=== PATIENT | female | born 1960 | race Caucasian/White ===

== ENCOUNTER → 2016-06-20 | Outpatient (CLI) | payer OTHER ==
--- NOTE | 2016-06-21 14:04 | CARD ---
APPROVED REPORT EXAM: Two-dimensional and M-mode echocardiogram with Doppler and color Doppler. Other Information Quality : AverageHR: 76bpm Rhythm : NSRTechnically limited study due to body habitus. INDICATION Dyspnea RISK FACTORS Obesity 2D DIMENSIONS RVDd2.6 (2.9-3.5cm)Left Atrium(2D)3.4 (1.6-4.0cm) IVSd0.9 (0.7-1.1cm)Aortic Root(2D)2.3 (2.0-3.7cm) LVDd5.7 (3.9-5.9cm)LVOT Diameter2.1 (1.8-2.4cm) PWd1.0 (0.7-1.1cm)LVDs3.6 (2.5-4.0cm) FS (%) 36.8 %SV106.1 ml LVEF(%)66.0 (>50%) Aortic Valve AoV Peak Cedric.164.6cm/sAoV VTI36.7cm AO Peak GR.10.8mmHgLVOT Peak Cedric.142.2cm/s AO Mean GR.6mmHgAVA (VMAX)3.11cm2 Mitral Valve MV E Olhmaokh616.0cm/sMV E Peak Gr.7mmHg MV DECEL YGCI601uoOR A Vylrirxr187.0cm/s MV E Mean Gr.4mmHgE/A Ratio1.0 MV A Exmlioft360tr Pulmonary Valve PV Peak Hppbtpru622.7cm/s Tricuspid Valve TR P. Ggymxfav374xp/sRAP QOYLCMWN5xlEx TR Peak Gr.13cjKaYBDI85pbWw Pulmonary Vein S1 Lgfqwott27.0cm/sD2 Xfyadqnt90.8cm/s PVa kpcyhxox66yvlz LEFT VENTRICLE The left ventricle is normal size. There is normal left ventricular wall thickness. The left ventricu lar systolic function is normal and the ejection fraction is within normal range. The LV EF is 66% Th ere is normal LV segmental wall motion. Transmitral Doppler flow pattern is Grade I-abnormal relaxati on pattern. There is no ventricular septal defect visualized. RIGHT VENTRICLE The right ventricle is normal size. There is normal right ventricular wall thickness. The right ventr icular systolic function is normal. ATRIA The left atrium is mildly dilated. The right atrium size is normal. The interatrial septum is intact with no evidence for an atrial septal defect or patent foramen ovale as noted on 2-D or Doppler imagi ng. AORTIC VALVE The aortic valve is normal in structure and function. Doppler and Color Flow revealed no significant aortic regurgitation. There is no significant aortic valvular stenosis. MITRAL VALVE The mitral valve is normal in structure There is no mitral valve stenosis. Doppler and Color Flow rev ealed trace mitral regurgitation. TRICUSPID VALVE The tricuspid valve is normal in structure and function. Doppler and Color Flow revealed mild to mode rate tricuspid regurgitation. There is moderate pulmonary hypertension. The PA pressure was estimated at 51 mmHg. PULMONIC VALVE The pulmonary valve is normal in structure Doppler and Color Flow revealed trace pulmonic valvular re gurgitation. There is no pulmonic valvular stenosis. GREAT VESSELS The aortic root is normal in size. The ascending aorta is normal in size. The pulmonary artery is nor mal. The IVC is normal in size and collapses >50% with inspiration. PERICARDIAL EFFUSION There is no pleural effusion. No significant pericardial effusion was seen Critical Notification Critical Value: No <Conclusion> The left ventricular systolic function is normal and the ejection fraction is within normal range. Th e LV EF is 66% Transmitral Doppler flow pattern is Grade I-abnormal relaxation pattern. The left atrium is mildly dilated. The aortic valve is normal in structure and function. Doppler and Color Flow revealed trace mitral regurgitation. Doppler and Color Flow revealed mild to moderate tricuspid regurgitation. There is moderate pulmonary hypertension. The PA pressure was estimated at 51 mmHg. Doppler and Color Flow revealed trace pulmonic valvular regurgitation. No significant pericardial effusion was seen
== END | disposition home or self-care (01) ==
LOC: ECHO 07:33
PROVIDERS: ATTEND Internal Medicine Cardiovascular Disease
DX: R94.31 Abnormal electrocardiogram [ECG] [EKG] (principal); R06.02 Shortness of breath; R06.00 Dyspnea, unspecified; I27.2 Other secondary pulmonary hypertension; I07.1 Rheumatic tricuspid insufficiency; I34.0 Nonrheumatic mitral (valve) insufficiency
CPT/HCPCS: 93306

== ENCOUNTER → 2016-08-14 | Outpatient (CLI) | payer OTHER ==
[~2016-08-14] MED LIST: ACETAMINOPHEN 500 MG TABLET PO ONE; OXYMETAZOLINE 0.05% NASAL SPRAY 30ML BOTTLE. NS ONE
--- NOTE | 2016-08-15 10:53 | SLEEP ---
DATE OF STUDY: 08/14/2016 ATTENDING PHYSICIAN: Dr. Rachele Dugan. DATE OF STUDY: 08/14/2016 The patient is 56 years old who weighs 320 pounds with a BMI of 55. The patient's [place] score was 3. Sleep study was performed at [place] [facility] lab. During the night of study, the patient spent 406 minutes in bed, but slept for only 148 minutes with poor sleep efficiency of 36%. Sleep latency was 18 minutes with an absent REM sleep. Overall, sleep architecture showed increased stage I sleep, normal stage II sleep, normal slow wave and absent REM sleep. During the night of study, the patient had 2 obstructive apneas, no mixed or central apneas. There were 54 hypopneas. The patient's apnea/hypopnea index was 23 per hour, supine index 19 per hour. REM sleep was not observed. EKG monitoring revealed normal sinus rhythm, average heart rate was 79 beats per minute. No sustained arrhythmias were observed. PLMS were seen at index of 2 per hour and none caused EEG arousals. Review of nocturnal oximetry study revealed mean oxygen saturation of 95% with the lowest of 89%. Only 0.3% of time oxygen saturation remained between 80% and 89%. The patient was very anxious during the study. She had poor sleep efficiency. She did not want to try Ambien. The patient was given an option of CPAP after brief trial, but she could not tolerate anything on her face. As a result, CPAP was not initiated. IMPRESSION: 1. Moderate sleep apnea-hypopnea syndrome with an AHI of 23 per hour. 2. 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 Could be related to anxiety. 3. No clinically significant nocturnal hypoxia. 4. No clinically significant PLMS. RECOMMENDATIONS: 1. The patient did meet the criteria for CPAP initiation; however, she declined to be placed on CPAP. The patient can be given an option of CPAP via nasal pillows and if she is willing to proceed with CPAP, a titration study can be rescheduled at a later date. 2. Alternate treatment options would include oral appliance as recommended by the dentist. Possibility of hypoglossal nerve stimulator placement is also an option. 3. Weight loss is strongly advised. 4. Avoid [employer] depressants. 5. Caution regarding driving until symptoms of sleep apnea resolve with the above recommendation. LUCAS MCQUEEN MD DR: JAKOB/waldemar JOB#: [id number] / [id number] RACHELE Moreno MD MTDD
== END | disposition home or self-care (01) ==
LOC: SLPLAB 18:35
PROVIDERS: ATTEND Family Medicine
DX: I27.2 Other secondary pulmonary hypertension (principal); E66.01 Morbid (severe) obesity due to excess calories; G47.33 Obstructive sleep apnea (adult) (pediatric)
CPT/HCPCS: 95810

== ENCOUNTER → 2016-09-03 | Outpatient (CLI) | payer OTHER ==
--- NOTE | 2016-09-03 11:50 | RAD ---
Indication postop care. The and the June 04, 2016. Initially transabdominal scans were obtained. The initial transabdominal scans were supplemented with transvaginal scans. It will be assumed for the purposes of this dictation at the hCG status is negative. The patient reports her last menstrual period 08/23/2016 The uterus measures approximately 10.4 x 5.2 x 6.6 cm. Endometrial thickness is 14 mm. Occasional nabothian cysts were seen. No significant free fluid was seen. Neither ovary was identified. No adnexal mass was not seen. IMPRESSION: Nonvisualization of the ovaries. Endometrial thickness 14 mm
== END | disposition home or self-care (01) ==
LOC: US 10:23
PROVIDERS: ATTEND Obstetrics & Gynecology
DX: Z39.2 Encounter for routine postpartum follow-up (principal); N88.8 Other specified noninflammatory disorders of cervix uteri
CPT/HCPCS: 76830; 76856

== ENCOUNTER → 2016-12-09 | Outpatient (CLI) | payer OTHER ==
--- NOTE | 2016-12-09 11:08 | RAD ---
Indication: Thickened endometrium, follow-up. Transabdominal and transvaginal pelvic sonography was performed. Correlation is made with prior ultrasound from 09/03/2016. The uterus measures 10.3 x 5.3 x 5.5 cm. The endometrium is thickened at 19 mm. Prior thickness was 14 mm in August 2015. No uterine mass is detected. Ovaries were not visualized. There are cervical Nabothian cysts present. Impression: Abnormal endometrial thickening of 19 mm. No other significant abnormality is detected.
== END | disposition home or self-care (01) ==
LOC: US 10:16
PROVIDERS: ATTEND Obstetrics & Gynecology
DX: N88.8 Other specified noninflammatory disorders of cervix uteri (principal); R93.8 Abnormal findings on diagnostic imaging of other specified body structures
CPT/HCPCS: 76830; 76856

== ENCOUNTER → 2018-04-17 | Outpatient (CLI) | payer OTHER ==
--- NOTE | 2018-04-17 14:50 | RAD ---
MR of the left shoulder Indication: Worsening left shoulder pain Technique: Standard multiplanar sequences are obtained. Findings: Artifact: No significant image degradation. Acromioclavicular joint: Mildly degenerative. Rotator cuff: * Supraspinatus-infraspinatus tendon: Tendinosis. Partial-thickness undersurface tear of the infraspinatus tendon, up to 50-70% deep. No full-thickness rotator cuff rupture or retraction * Subscapularis tendon: Tendinosis with partial tear * Muscle bulk: Mild atrophy * Subacromial subdeltoid bursa: Trace effusion. Fluid: Small glenohumeral effusion. Glenohumeral cartilage: No acute defect or advanced DJD. Labrum: No evidence of labral detachment. Biceps tendon: Intact. Mild fluid surrounding the tendon into the upper arm. Bones: No lesion or acute fracture. Soft tissue: No acute findings. Impression: Rotator cuff tendinosis. Partial-thickness undersurface tear of the infraspinatus tendon. No full-thickness rotator cuff tear. Electronically signed by: Mikey Koroma MD (04/17/2018 2:47 PM) [facility]
== END | disposition home or self-care (01) ==
LOC: MRI 13:17
PROVIDERS: ATTEND Nurse Practitioner Family
DX: S46.012A Strain of muscle(s) and tendon(s) of the rotator cuff of left shoulder, initial encounter (principal); M25.412 Effusion, left shoulder; X58.XXXA Exposure to other specified factors, initial encounter; Y93.89 Activity, other specified; Y92.89 Other specified places as the place of occurrence of the external cause; Y99.8 Other external cause status
CPT/HCPCS: 73221

== ENCOUNTER → 2018-10-20 | Outpatient (CLI) | payer OTHER ==
--- NOTE | 2018-10-20 15:35 | RAD ---
Left lower extremity venous ultrasound, 10/20/2018 : History: Left leg pain and swelling Duplex evaluation including grayscale, color flow and spectral Doppler analysis was performed. The femoral and popliteal veins show no filling defects to suggest DVT. The visualized calf veins are unremarkable. IMPRESSION: There is no sonographic evidence of deep vein thrombosis in the left lower extremity: Electronically signed by: Ham Patel MD (10/20/2018 3:33 PM) [facility]
== END | disposition home or self-care (01) ==
LOC: US 14:13
PROVIDERS: ATTEND Family Medicine
DX: L03.116 Cellulitis of left lower limb (principal); R59.1 Generalized enlarged lymph nodes
CPT/HCPCS: 93971

== ENCOUNTER → 2019-01-08 | Outpatient (CLI) | payer OTHER ==
--- NOTE | 2019-01-08 15:09 | CARD ---
MR#: [id number] Date of Study: 01/08/2019 Ordering Physician: RITIKA BORJAS, Referring Physician: RITIKA BORJAS, Tech: Dina Kovacs APPROVED REPORT EXAM: Two-dimensional and M-mode echocardiogram with Doppler and color Doppler. Other Information Quality : AverageHR: 68bpm INDICATION Edema RISK FACTORS Hyperlipidemia Pre Diabetic 2D DIMENSIONS RVDd2.5 (2.9-3.5cm)Left Atrium(2D)3.1 (1.6-4.0cm) IVSd1.2 (0.7-1.1cm)Aortic Root(2D)3.1 (2.0-3.7cm) LVDd5.2 (3.9-5.9cm)LVOT Diameter2.1 (1.8-2.4cm) PWd1.2 (0.7-1.1cm)LVDs3.4 (2.5-4.0cm) FS (%) 34.6 %SV81.4 ml LVEF(%)63.4 (>50%) Aortic Valve AoV Peak Cedric.162.1cm/sAoV VTI35.9cm AO Peak GR.10.5mmHgLVOT Peak Cedric.144.0cm/s LVOT VTI 32.17cmAO Mean GR.6mmHg CARLOS (VMAX)2.19kr8RUO (VTI)3.06cm2 Mitral Valve MV E Zmeisdlz603.3cm/sMV DECEL JIAP489bh MV A Mphatnpx427.2cm/sMV BHZ23cs E/A Ratio1.1MVA (PHT)4.36cm2 TDI E/Lateral E'10.3E/Medial E'12.2 Pulmonary Valve PV Peak Qwfkyphu015.2cm/sPV Peak Grad.5mmHg Tricuspid Valve TR P. Ehfzrkin720lp/sRAP ZKFJEYVU0ucMb TR Peak Gr.74edLwNTGI33deDq Pulmonary Vein S1 Vgucrxrz90.4cm/sD2 Qtestvyj07.1cm/s PVa xfiyrrsx365nzxg LEFT VENTRICLE The left ventricle is normal size. There is mild concentric left ventricular hypertrophy. The left ve ntricular systolic function is normal and the ejection fraction is within normal range. The Ejection Fraction is 50-55%. There is normal LV segmental wall motion. Transmitral Doppler flow pattern is Gra de II-pseudonormal filling dynamics. RIGHT VENTRICLE The right ventricle is normal size. There is normal right ventricular wall thickness. The right ventr icular systolic function is normal. ATRIA The left atrium is borderline dilated. The right atrium is mildly dilated. The interatrial septum is intact with no evidence for an atrial septal defect or patent foramen ovale as noted on 2-D or Dopple r imaging. AORTIC VALVE The aortic valve is normal in structure and function. Doppler and Color Flow revealed no significant aortic regurgitation. There is no significant aortic valvular stenosis. MITRAL VALVE The mitral valve is normal in structure and function. There is no evidence of mitral valve prolapse. There is no mitral valve stenosis. Doppler and Color-flow revealed trace mitral regurgitation. TRICUSPID VALVE The tricuspid valve is normal in structure and function. Doppler and Color Flow revealed trace tricus pid regurgitation with an estimated PAP of 34 mmHg. There is no tricuspid valve stenosis. PULMONIC VALVE Doppler and Color Flow revealed no pulmonic valvular regurgitation. There is no pulmonic valvular henrietta nosis. GREAT VESSELS The aortic root is normal in size. The IVC is normal in size and collapses >50% with inspiration. PERICARDIAL EFFUSION There is no evidence of significant pericardial effusion. Critical Notification Critical Value: No <Conclusion> The left ventricular systolic function is normal and the ejection fraction is within normal range. Th e Ejection Fraction is 50-55%. There is normal LV segmental wall motion. Signed by : Leonel Perez, Electronically Approved : 01/08/2019 15:08:52
--- NOTE | 2019-01-08 16:26 | RAD ---
MR#: [id number] Date of Study: 01/08/2019 Ordering Physician: RITIKA BORJAS, Referring Physician: RITIKA BORJAS, Tech: Dina Sal RDMS, CHARLAT, RTR APPROVED REPORT Patient Location : OUT-PATIENT Indications Lower Extremity Edema : Greater Saphenous Veins (GSV) Significant venous relux noted in the RIGHT GSV at the following levels : Superficial Femoral Junctio n, Proximal Thigh, Mid Thigh, Distal Thigh, Proximal Calf Significant venous relux noted in the LEFT GSV at the following levels : Superficial Femoral Junction , Proximal Thigh, Mid Thigh, Distal Thigh, Proximal Calf Findings Grayscale images of the saphenofemoral junctions do not reveal any obvious evidence of thrombus. The bilateral greater saphenous veins measure approximately 6 mm bilaterally. There is mild reflux at approximately 1.5 seconds bilaterally. Bilateral lesser saphenous veins do not show any evidence of reflux. Critical Notification Critical Value: No <Conclusion> 1. Positive for reflux in the bilateral greater saphenous veins, mild by spectral imaging but positiv e based on reflux time. Signed by : Leonel Perez, Electronically Approved : 01/08/2019 16:25:39
== END | disposition home or self-care (01) ==
LOC: ECHO 09:58
PROVIDERS: ATTEND Internal Medicine Cardiovascular Disease
DX: I51.7 Cardiomegaly (principal); R60.0 Localized edema
CPT/HCPCS: 93306; 93970

== ENCOUNTER → 2019-03-03 | Outpatient (CLI) | payer OTHER ==
--- NOTE | 2019-03-03 11:39 | RAD ---
MR#: [id number] Date of Study: 03/03/2019 Ordering Physician: RITIKA BORJAS, Referring Physician: RITIKA BORJAS, Tech: Geovani Lowe MBA, RDMS, RVT, RDCS, RTR APPROVED REPORT Bilateral Lower Extremity Venous Study for DVT Patient Location: OUT-PATIENT Indications s/p gsv ablatons Vein Imaging (Right) CFV (R): Compressible SFJ (R): Compressible FEM (R): Compressible POP (R): Compressible DFV (R): Compressible PTV (R): Spontaneous GSV (R): Absent Flow Peroneals (R): Spontaneous Vein Imaging (Left) CFV (L): Compressible SFJ (L): Compressible FEM (L): Compressible POP (L): Compressible DFV (L): Compressible PTV (L): Spontaneous GSV (L): Absent Flow Doppler Evaluation (Right) CFV (R): Spontaneous POP (R):Spontaneous Doppler Evaluation (Left) CFV (L):Spontaneous POP (L):Spontaneous Findings Grayscale images of the bilateral lower extremity deep veins were limited due to body habitus. Grossly the common femoral veins and proximal superficial femoral veins are compressible. Based on co ryan Doppler evaluation there is normal phasic flow in the superficial femoral veins. Normal compressi bility and flow is noted in the popliteal veins. Normal spontaneous flow is noted in the below-knee v eins. The bilateral greater saphenous veins demonstrate occlusive thrombus consistent with recent ablation. No evidence of DVT Critical Notification Critical Value: No <Conclusion> 1. Successful bilateral greater saphenous vein ablation 2. No evidence of DVT Signed by : Leonel Perez, Electronically Approved : 03/03/2019 11:39:25
== END | disposition home or self-care (01) ==
LOC: US 10:15
PROVIDERS: ATTEND Internal Medicine Cardiovascular Disease
DX: I87.2 Venous insufficiency (chronic) (peripheral) (principal)
CPT/HCPCS: 93970

== ENCOUNTER → 2020-03-16 | Outpatient (CLI) | payer OTHER ==
--- NOTE | 2020-03-16 10:18 | KCIC ---
EXAM: Bilateral screening mammogram. HISTORY: 59-year-old female presents for screening mammography. TECHNIQUE: Full-field digital craniocaudal and mediolateral oblique views of both breasts are obtained for evaluation. Computer aided detection with [employer] software version 9.3 was applied. COMPARISON: 09/07/2015 and 02/18/2013 BREAST PARENCHYMAL DENSITY: Level B - Scattered fibroglandular densities. FINDINGS: There is no new suspicious mass, microcalcification or region of architectural distortion. There are stable areas of asymmetry within both breasts. IMPRESSION: BI-RADS Category 2: Benign finding(s). RECOMMENDATION: Annual mammography is recommended. If your mammogram demonstrates that you have dense breast tissue, which could hide abnormalities, and if you have other risk factors for breast cancer that have been identified, you might benefit from supplemental screening tests that may be suggested by your ordering physician. Dense breast tissue, in and of itself, is a relatively common condition. This information is not provided to cause undue concern, but rather to raise your awareness and to promote discussion with your physician regarding the presence of other risk factors, in addition to dense breast tissue. A report of your mammography results will be sent to you and your physician. You should contact your physician if you have any questions or concerns regarding this report. Mammography is a sensitive method for finding small breast cancers, but it does not detect them all and is not a substitute for careful clinical examination. A negative mammogram does not negate a clinically suspicious finding and should not result in delay in biopsying a clinically suspicious abnormality. PQRS compliance statement - Patient information was entered into a reminder system with a target due date for the next mammogram. "Our facility is accredited by the [employer] Mammography Program." Electronically signed by: Suzanne Isabel MD (03/16/2020 10:15 AM) [facility]
== END | disposition home or self-care (01) ==
LOC: KCIC MAMMO 08:06
PROVIDERS: ATTEND Family Medicine
DX: Z12.31 Encounter for screening mammogram for malignant neoplasm of breast (principal)
CPT/HCPCS: 77067

== ENCOUNTER → 2020-05-18 | Outpatient (CLI) | payer OTHER ==
--- NOTE | 2020-05-19 10:26 | CARD ---
MR#: [id number] Date of Study: 05/18/2020 Ordering Physician: RITIKA BORJAS, Referring Physician: RITIKA BORJAS, Charo: Carley Paniagua APPROVED REPORT EXAM: Two-dimensional and M-mode echocardiogram with Doppler and color Doppler. Other Information Quality : Technically LimitedHR: 66bpm INDICATION Venous insufficiency. Hyperlipidemia. Pre-Diabetes. 2D DIMENSIONS Left Atrium(2D)4.0 (1.6-4.0cm)IVSd1.0 (0.7-1.1cm) Aortic Root(2D)3.1 (2.0-3.7cm)LVDd4.3 (3.9-5.9cm) LVOT Diameter1.9 (1.8-2.4cm)PWd0.7 (0.7-1.1cm) LVDs3.5 (2.5-4.0cm)FS (%) 19.6 % SV34.3 mlLVEF(%)40.4 (>50%) Aortic Valve AoV Peak Cedric.157.3cm/Serenity Peak GR.10.5mmHg LVOT Peak Cedric.142.0cm/sAVA (VMAX)2.60cm2 Mitral Valve MV E Sbqsmdwd731.6cm/sMV DECEL FLYE647oy MV A Atsqkenr154.4cm/sE/A Ratio0.9 Pulmonary Valve PV Peak Ymtwtgcd37.2cm/s Tricuspid Valve TR P. Ellozzfh623hr/sTR Peak Gr.29mmHg Pulmonary Vein S1 Xtizscmu61.1cm/sD2 Tjidycid44.8cm/s PVa lbwalzcl62duxt LEFT VENTRICLE The left ventricle is normal size. There is normal left ventricular wall thickness. The left ventricu lar systolic function is normal and the ejection fraction is within normal range. EF 55% There is nor mal LV segmental wall motion. The left ventricular diastolic function and filling is normal for age. No left ventricle thrombus noted on this study. There is no ventricular septal defect visualized. The re is no left ventricular aneurysm. There is no mass noted in the left ventricle. RIGHT VENTRICLE The right ventricle is normal size. There is normal right ventricular wall thickness. The right ventr icular systolic function is normal. ATRIA The left atrium size is normal. The right atrium size is normal. The interatrial septum is intact wit h no evidence for an atrial septal defect or patent foramen ovale as noted on 2-D or Doppler imaging. AORTIC VALVE The aortic valve is normal in structure and function. Doppler and Color Flow revealed no significant aortic regurgitation. There is no significant aortic valvular stenosis. There is no aortic valvular v egetation. MITRAL VALVE The mitral valve is normal in structure and function. There is no evidence of mitral valve prolapse. There is no mitral valve stenosis. Doppler and Color Flow revealed trace mitral regurgitation. TRICUSPID VALVE The tricuspid valve is normal in structure and function. Doppler and Color Flow revealed trace to mil d tricuspid regurgitation. The pulmonary artery systolic pressure is estimated at 29 mmHg. There is m ild pulmonary hypertension. The PA pressure was estimated at 32 mmHg. There is no tricuspid valve pro lapse or vegetation. There is no tricuspid valve stenosis. PULMONIC VALVE Doppler and Color Flow revealed no pulmonic valvular regurgitation. There is no pulmonic valvular henrietta nosis. GREAT VESSELS The aortic root is normal in size. The ascending aorta is normal in size. The IVC is normal in size a nd collapses >50% with inspiration. PERICARDIAL EFFUSION There is no pleural effusion. There is no evidence of significant pericardial effusion. Critical Notification Critical Value: No <Conclusion> The left ventricular systolic function is normal and the ejection fraction is within normal range. EF 55% There is normal LV segmental wall motion. Signed by : Leonel Perez, Electronically Approved : 05/18/2020 12:34:08
== END ==
LOC: ECHO 09:35
PROVIDERS: ATTEND Internal Medicine Cardiovascular Disease
DX: I07.1 Rheumatic tricuspid insufficiency (principal); I87.2 Venous insufficiency (chronic) (peripheral)
CPT/HCPCS: 93306